=== PATIENT | male | born 1955 | race Caucasian/White ===

== ENCOUNTER 2021-12-11 14:50 | Emergency (ER) | payer BC ==
[~2021-12-11] VITALS: Ht 177.8 cm; Wt 85.7 kg
[2021-12-11] MEDS ORDERED: CARV12.52 PO (15:41)
[2021-12-11] MEDS ORDERED: GABA-536 PO (15:41)
[2021-12-11] MEDS ORDERED: BISA10SU61 RC (15:41)
[2021-12-11] MEDS ORDERED: LIDOCAINE PATCH TP (15:41)
[2021-12-11] MEDS ORDERED: EMPA25TA PO (15:41)
[2021-12-11] MEDS ORDERED: NA P133E RC (15:41)
[2021-12-11] MEDS ORDERED: MEGE400O5 PO (15:41)
[2021-12-11] MEDS ORDERED: ATOR10TA PO (15:41)
[2021-12-11] MEDS ORDERED: MIDO10TA PO (15:41)
[2021-12-11] MEDS ORDERED: MAGN400O6 PO (15:41)
[2021-12-11] MEDS ORDERED: DOCU100C36 PO (15:41)
[2021-12-11] MEDS ORDERED: ASPI-618 PO (15:41)
[2021-12-11] MEDS ORDERED: DULO30CA2 PO (15:41)
[2021-12-11 15:48] LABS: *BILIRUBIN,URIN 2+ (NEGATIVE); *BLOOD, URINE 3+ (NEGATIVE); *CLARITY,URINE CLOUDY (CLEAR); *COLOR,URINE Brown (YELLOW); *KETONES,URINE TRACE (NEGATIVE); LEUKOCYTE ESTERASE ,URINE NEGATIVE (NEGATIVE); NITRITE, URINE NEGATIVE (NEGATIVE); PH,URINE 5.5 (5.0-8.0); UGLUCOSE NEGATIVE (NEGATIVE)
[2021-12-11 15:49] LABS: HEMATOCRIT 42.9 % (36.7-47.1); MEAN CORPUSCULAR HEMOGLOBIN 31.5 uug (23.8-33.4); PLATELET COUNT (AUTO) 225 K/uL (152-348)
[2021-12-11 15:52] LABS: CREATININE 0.8 mg/dL (0.6-1.3); POTASSIUM 4.2 mmol/L (3.5-5.1)
[2021-12-11 16:06] LABS: BILIRUBIN,DIRECT 0.2 mg/dL (0.0-0.2); BILIRUBIN,TOTAL 0.6 mg/dL (0.2-1.0); TOTAL PROTEIN, SERUM 6.8 g/dL (6.4-8.2)
[2021-12-11] MEDS ORDERED: RIVA10TA PO (16:06)
[2021-12-11] MEDS ORDERED: OXYC10TA49 PO ×2 (16:06)
[2021-12-11] MEDS ORDERED: POLY17PO4 PO (16:06)
[2021-12-11] MEDS ORDERED: SITA100T PO (16:06)
[2021-12-11] MEDS ORDERED: SENN-261 PO (16:06)
[2021-12-11] MEDS ORDERED: SACU1TAB PO (16:06)
[2021-12-11] MEDS ORDERED: INSU100V39 SQ (16:06)
[2021-12-11] MEDS ORDERED: IV NORMAL SALINE 1000 ML BAG IV ONE (16:30)
[2021-12-11] MEDS ORDERED: CEPH500C2 PO (16:48)
[2021-12-11] MEDS ORDERED: ONDANSETRON 4 MG/2 ML VIAL ONE (16:49)
[2021-12-11] MEDS ORDERED: CEphaleXIN 500 MG CAPSULE PO ONE (17:00)
[2021-12-11] MEDS ORDERED: CEphaleXIN 500 MG CAPSULE ONE (17:32)
[2021-12-11 19:01] LABS: BACTERIA,URINE MODERATE /HPF (NONE SEEN); CALCIUM OXALATE CRYSTALS,UR FEW /HPF (NONE SEEN); SQUAMOUS EPITHELIAL CELL,UR FEW /HPF (NONE SEEN)
[2021-12-11 19:02] LABS: RBC,URINE 20-50 /HPF (0-3)
--- NOTE | 2021-12-11 19:18 | NUR ---
PT WAS EVALUATED BY DR MARQUEZ. PT WAS D/C'd TO HOME. D/C INSTRUCTIONS GIVEN TO THE PT AND TO AMBULANCE EMT.
[2021-12-11 19:19] VITALS: BP 129/71
== END 2021-12-11 19:20 ==
LOC: ER 14:50
DX: T83.9XXA Unspecified complication of genitourinary prosthetic device, implant and graft, initial encounter (principal); R31.29 Other microscopic hematuria; Y73.8 Miscellaneous gastroenterology and urology devices associated with adverse incidents, not elsewhere classified; Y92.129 Unspecified place in nursing home as the place of occurrence of the external cause; R79.1 Abnormal coagulation profile; Z96.652 Presence of left artificial knee joint; E11.40 Type 2 diabetes mellitus with diabetic neuropathy, unspecified; Z79.4 Long term (current) use of insulin; I48.91 Unspecified atrial fibrillation; Z79.01 Long term (current) use of anticoagulants; I25.9 Chronic ischemic heart disease, unspecified; M96.1 Postlaminectomy syndrome, not elsewhere classified; Z98.1 Arthrodesis status; Z79.84 Long term (current) use of oral hypoglycemic drugs; Z79.899 Other long term (current) drug therapy
CPT/HCPCS: 36415; 51702; 80048; 80076; 81001; 85025; 85730; 87040 ×2; 87086; 96360; 99284; J2405; J7040; A4663